=== PATIENT | male | born 1940 | race Caucasian/White ===

== ENCOUNTER 2018-04-27 10:16 | Day surgery (SDC) | payer MEDICAID ==
[~2018-04-27] VITALS: Ht 165.1 cm; Wt 80.3 kg
[2018-04-27] MEDS ORDERED: LACTATED RINGERS 1,000 ML IV SCH (11:50)
[2018-04-27] MEDS ORDERED: INSU100I24 SQ (13:10)
[2018-04-27] MEDS ORDERED: FERR325T6 PO (13:10)
[2018-04-27] MEDS ORDERED: METO25TA6 PO (13:10)
[2018-04-27] MEDS ORDERED: TAMS0.4C31 PO (13:10)
[2018-04-27] MEDS ORDERED: PANT40TA4 PO (13:10)
[2018-04-27] MEDS ORDERED: ATOR-2 PO (13:10)
[2018-04-27] MEDS ORDERED: AMLO10TA80 PO (13:10)
[2018-04-27] MEDS ORDERED: SIMETHICONE 40 MG/0.6 ML 30ML ONE (13:38)
[2018-04-27] MEDS ORDERED: PROPOFOL 200MG/20ML VIAL IV ONE (14:15)
[2018-04-27] MEDS ORDERED: LIDOCAINE HCL/PF 1% 10 MG/ML 5ML VIAL ONE (14:16)
[2018-04-27] MEDS ORDERED: ATROPINE SULFATE 1MG/10ML SYR ONE (14:16)
== END 2018-04-27 16:45 | disposition home or self-care (01) ==
LOC: OR 10:16
PROVIDERS: ATTEND Internal Medicine Gastroenterology
DX: K29.50 Unspecified chronic gastritis without bleeding (principal); K22.8 Other specified diseases of esophagus; I12.9 Hypertensive chronic kidney disease with stage 1 through stage 4 chronic kidney disease, or unspecified chronic kidney disease; K74.60 Unspecified cirrhosis of liver; E11.22 Type 2 diabetes mellitus with diabetic chronic kidney disease; N18.9 Chronic kidney disease, unspecified; N40.0 Benign prostatic hyperplasia without lower urinary tract symptoms; E66.9 Obesity, unspecified; E78.00 Pure hypercholesterolemia, unspecified; Z79.4 Long term (current) use of insulin; Z79.899 Other long term (current) drug therapy; Z98.890 Other specified postprocedural states
CPT/HCPCS: 43239; 82962; 88305; 93005; J0461; J3490; J7120; J2704

== ENCOUNTER 2019-12-14 17:16 | Inpatient (IN) | payer MEDICAID ==
[~2019-12-14] VITALS: Ht 167.6 cm; Wt 67.6 kg
[~2019-12-14 17:16] MED LIST: AMLO10TA80 PO; ATOR-2 PO; FERR325T6 PO; INSU100I24 SQ; METO25TA6 PO; PANT40TA4 PO; TAMS0.4C31 PO
[2019-12-14 18:37] LABS: BASOPHILS % 0.2 % (0.0-2.0); CHLORIDE 98 mEq/L (98-107); EOSINOPHILS % 1.1 % (0.0-5.0); HEMATOCRIT. 27.5 % (42.0-52.0); HEMOGLOBIN. 9.1 g/dL (14.0-18.0); LYMPHOCYTES % 24.4 % (20.0-50.0); MEAN CORPUSCULAR HEMOGLOBIN 28.6 pg (28.0-32.0); MEAN CORPUSCULAR VOLUME 86.2 fL (80.0-94.0); MEAN PLATELET VOLUME 8.4 fl (7.4-10.4); MONOCYTES % 5.8 % (2.0-8.0); NEUTROPHILS % 68.5 % (40.0-76.0); PLATELET 100 x1000/uL (130-400); RED BLOOD CELL COUNT 3.19 mill/uL (4.7-6.1); RED CELL DISTRIBUTION WIDTH 16.9 % (11.6-14.6)
[2019-12-14 18:42] LABS: INR 1.1; PARTIAL THROMBOPLASTIN TIME 26.1 sec (23.4-31.0); PROTHROMBIN TIME 11.4 sec (9.6-11.0)
[2019-12-15 11:17] VITALS: BP 139/63
[2019-12-15 12:00] VITALS: BP 152/60
[2019-12-15] MEDS: BLOOD SUGAR DIAGNOSTIC STRIP TEST SCH ×3 (12:40→20:35)
[2019-12-15] MEDS ORDERED: ACETAMINOPHEN 325MG TABLET PO PRN (12:45)
[2019-12-15] MEDS ORDERED: ONDANSETRON HCL 4MG/2ML INJ IV PRN (12:45)
[2019-12-15] MEDS ORDERED: DEXTROSE 50% WATER 50ML SYRINGE IV PRN (12:45)
[2019-12-15 12:51] VITALS: BP 152/60
[2019-12-15] MEDS ORDERED: DESMOPRESSIN ACETATE 4MCG/ML AMP IV ONE (13:00)
[2019-12-15] MEDS: INSULIN LISPRO 100 UNITS/ML SUBCUT SCH ×3 (13:10→20:38)
[2019-12-15] MEDS ORDERED: LIDOCAINE HCL 1% 20ML VIAL (Pyxis) INJ ONE (13:54)
[2019-12-15] MEDS ORDERED: SODIUM BICARBONATE 4% (2.4MEQ) 5ML VIAL IV ONE (13:54)
[2019-12-15] MEDS ORDERED: WATER IV SCH (14:00)
[2019-12-15] MEDS ORDERED: DEXTROSE 5% IV SCH (14:00)
[2019-12-15] MEDS ORDERED: DESMOPRESSIN ACETATE IV SCH (14:00)
[2019-12-15 15:29] LABS: BASOPHILS % 0.5 % (0.0-2.0); EOSINOPHILS % 1.2 % (0.0-5.0); HEMATOCRIT. 27.2 % (42.0-52.0); HEMOGLOBIN. 9.1 g/dL (14.0-18.0); LYMPHOCYTES % 19.4 % (20.0-50.0); MEAN CORPUSCULAR HEMOGLOBIN 29.2 pg (28.0-32.0); MEAN CORPUSCULAR VOLUME 87.7 fL (80.0-94.0); MEAN PLATELET VOLUME 9.1 fl (7.4-10.4); MONOCYTES % 5.1 % (2.0-8.0); NEUTROPHILS % 73.8 % (40.0-76.0); PLATELET 116 x1000/uL (130-400); RED CELL DISTRIBUTION WIDTH 16.9 % (11.6-14.6)
[2019-12-15 16:00] VITALS: BP 143/56
[2019-12-15 16:41] LABS: PLATELET ESTIMATE DECREASED
[2019-12-15 20:00] VITALS: BP 146/59
[2019-12-16] VITALS: BP 144/55
[2019-12-16 05:04] LABS: BASOPHILS % 0.4 % (0.0-2.0); EOSINOPHILS % 1.1 % (0.0-5.0); HEMATOCRIT. 26.3 % (42.0-52.0); HEMOGLOBIN. 8.6 g/dL (14.0-18.0); LYMPHOCYTES % 22.9 % (20.0-50.0); MEAN CORPUSCULAR HEMOGLOBIN 28.8 pg (28.0-32.0); MEAN CORPUSCULAR VOLUME 88.2 fL (80.0-94.0); MEAN PLATELET VOLUME 8.8 fl (7.4-10.4); MONOCYTES % 6.2 % (2.0-8.0); NEUTROPHILS % 69.4 % (40.0-76.0); PLATELET 114 x1000/uL (130-400); RED BLOOD CELL COUNT 2.98 mill/uL (4.7-6.1); RED CELL DISTRIBUTION WIDTH 17.6 % (11.6-14.6)
[2019-12-16] MEDS: BLOOD SUGAR DIAGNOSTIC STRIP TEST SCH ×2 (06:18→11:45)
[2019-12-16 08:00] VITALS: BP 155/61
[2019-12-16] MEDS: INSULIN LISPRO 100 UNITS/ML SUBCUT SCH ×2 (08:10→12:16)
[2019-12-16 12:00] VITALS: BP 145/51
[2019-12-16 13:55] VITALS: BP 121/78
[2019-12-16] MEDS ORDERED: EPOETIN ALFA 10000UNITS/ML VIAL SUBCUT SCH (21:00)
== END 2019-12-16 16:18 | disposition home or self-care (01) | DRG 206 ==
LOC: ER 17:16 → 7WST 23:29 → EDBEDREQ 23:40 → ENRESERV 12-15 07:43
PROVIDERS: ADMIT Internal Medicine; ATTEND Internal Medicine
PROC: 5A1D70Z Performance of Urinary Filtration, Intermittent, Less than 6 Hours Per Day (ICD-10-PCS; principal; 2019-12-15)
PROC: 05WYX3Z Revision of Infusion Device in Upper Vein, External Approach (ICD-10-PCS; 2019-12-15)
PROC: 5A1D70Z Performance of Urinary Filtration, Intermittent, Less than 6 Hours Per Day (ICD-10-PCS; 2019-12-16)
DX: T82.838A Hemorrhage due to vascular prosthetic devices, implants and grafts, initial encounter (principal); D69.6 Thrombocytopenia, unspecified; E11.22 Type 2 diabetes mellitus with diabetic chronic kidney disease; I12.0 Hypertensive chronic kidney disease with stage 5 chronic kidney disease or end stage renal disease; E87.1 Hypo-osmolality and hyponatremia; N18.6 End stage renal disease; D50.0 Iron deficiency anemia secondary to blood loss (chronic); F03.90 Unspecified dementia, unspecified severity, without behavioral disturbance, psychotic disturbance, mood disturbance, and anxiety; Y84.1 Kidney dialysis as the cause of abnormal reaction of the patient, or of later complication, without mention of misadventure at the time of the procedure; Z99.2 Dependence on renal dialysis; Y92.89 Other specified places as the place of occurrence of the external cause
CPT/HCPCS: 12001; 36415; 71045; 80048; 80053; 82728; 82962; 83036; 83540; 83550; 85025; 86850; 86900; 93005; 93970; 99285; J1815; J2597; J3490; J7060